=== PATIENT | female | born 1980 | race Caucasian/White ===

== ENCOUNTER 2018-05-08 08:39 | Emergency (ER) | payer BC ==
[2018-05-08 08:50] VITALS: BMI 25.8
--- NOTE | 2018-05-08 09:00 | PDOC ---
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 Symptoms abated, however she is concerned because her blood pressure as taken by the school nurse was 150 systolic. She now has headache/pressure, primarily frontal, and feels weak. She denies focal numbness , change in speech, facial asymmetry, difficulty walking, or any other symptoms. Vital signs on arrival are all within normal limits, including blood pressure 105/67. REVIEW OF SYSTEMS: GENERAL/CONSTITUTIONAL: Generalized weakness. No fever or chills. No weight change. HEAD, EYES, EARS, NOSE AND THROAT: No change in vision. No ear pain or discharge. No sore throat. CARDIOVASCULAR: No chest pain or palpitations. RESPIRATORY: No cough, wheezing, or shortness of breath. GASTROINTESTINAL: No nausea, vomiting, diarrhea or constipation. GENITOURINARY: No dysuria, frequency, or change in urination. MUSCULOSKELETAL: No joint or muscle swelling or pain. No neck or back pain. SKIN: No rash or easy bruising. NEUROLOGIC: See HPI. PSYCHIATRIC: No depression or anxiety. ENDOCRINE: No increased thirst. No abnormal weight change. HEMATOLOGIC/LYMPHATIC: No anemia, easy bleeding, or history of blood clots. ALLERGIC/IMMUNOLOGIC: No hives or skin allergy. No latex allergy. PHYSICAL EXAM: GENERAL: The patient is awake, alert, and fully oriented, in no acute distress. HEAD: Normal with no signs of trauma. ENT: Pupils equal, round and reactive to light, extraocular movements intact, sclera anicteric, conjunctiva clear. Neck supple. LUNGS: Clear to auscultation bilaterally. Normal excursion. No respiratory distress or use of accessory muscles. CV: RRR, S1/S2, no MRG. Cap refill < 2 sec. ABDOMEN: Soft, non-distended, non-tender. EXTREMITIES: Normal range of motion, no edema. NEUROLOGICAL: Normal speech, normal gait. CN II-XII grossly intact. Subjective decreased sensation in right face, arm, and leg. Normal strength. PSYCH: Normal mood, normal affect. SKIN: Warm, dry, normal turgor, no rashes or lesions noted. Past History - Past Medical History Allergies/Adverse Reactions: Allergies Allergy/AdvReac Type Severity Reaction Status Date / Time No Known Allergies Allergy Verified 11/26/14 05:54 Home Medications: Ambulatory Orders NK [No Known Home Medication] 05/08/18 Asthma: No Cancer: No Cardiac Disorders: No COPD: No Diabetes: No HTN: No Seizures: No Thyroid Disease: No - Surgical History Cholecystectomy: No - Immunization History Immunization Up to Date: No - Suicide/Smoking/Psychosocial Hx Smoking History: Never smoked Have you smoked in the past 12 months: No Information on smoking cessation initiated: No Hx Alcohol Use: No Drug/Substance Use Hx: No Substance Use Type: None Hx Substance Use Treatment: No *Physical Exam - Vital Signs Last Vital Signs Temp Pulse Resp BP Pulse Ox 97.9 F 74 16 105/67 99 05/08/18 08:48 05/08/18 08:48 05/08/18 08:48 05/08/18 08:48 05/08/18 08:48 Moderate Sedation - Procedure Monitoring Vital Signs: Procedure Monitoring Vital Signs Temperature 97.9 F 05/08/18 08:48 Pulse Rate 74 05/08/18 08:48 Respiratory Rate 16 05/08/18 08:48 Blood Pressure 105/67 05/08/18 08:48 O2 Sat by Pulse Oximetry (%) 99 05/08/18 08:48 ED Treatment Course - LABORATORY CBC & Chemistry Diagram: 05/08/18 09:00 05/08/18 09:00 Medical Decision Making - Medical Decision Making 05/08/18 11:40 A/P: 37-year-old female with multiple symptoms including headache, dizziness, and blurred vision (resolved). 1. EKG 2. Head CT (subjective right-sided decreased sensation) 3. Labs including CBC, CMP, TSH 4. IV fluids and Tylenol for headache 5. Reassess 05/08/18 12:49 CT reviewed: no evidence of hemorrhage o infarct. Right sphenoid opacification. Labs reviewed and unremarkable. Patient denies dizziness, visual symptoms. Frontal headache improved but still present. *DC/Admit/Observation/Transfer Diagnosis at time of Disposition: Dizziness Headache Qualifiers: Headache type: unspecified Headache chronicity pattern: acute headache Intractability: not intractable Qualified Code(s): R51 - Headache - Discharge Dispostion Disposition: HOME Condition at time of disposition: Improved Decision to Admit order: No - Referrals Referrals: Nima Baumann MD [Primary Care Provider] - Rafael Moses MD [Staff Physician] - Call tomorrow (Neurology) - Patient Instructions Printed Discharge Instructions: DI for Visual Field Disturbances, DI for Headache Additional Instructions: -Your labs and CT scan did not reveal anything concerning -Use Flonase once daily for chronic sinusitis -Follow up with Dr. Moses (neurology - referral enclosed) -Return here for dizziness, visual disturbances, worsening headache, or any other concerning symptoms - Post Discharge Activity Forms/Work/School Notes: Back to Work
[2018-05-08 09:33] LABS: BASO % 0.4 % (0-2.0); EOS % 1.5 % (0-4.5); HEMATOCRIT 39.1 % (32.4-45.2); HEMOGLOBIN 13.5 GM/dL (10.7-15.3); LYMPH % 43.1 % (8-40); MCH 30.9 pg (25.7-33.7); MCHC 34.4 g/dl (32.0-36.0); MEAN CELL VOLUME 89.7 fl (80-96); MEAN PLT VOLUME 9.2 fl (7.5-11.1); MONO % 7.3 % (3.8-10.2); NEUT % 47.7 % (42.8-82.8); PLATELET COUNT 189 K/MM3 (134-434); RBC 4.36 M/mm3 (3.60-5.2); RDW 13.5 % (11.6-15.6); WHITE BLOOD COUNT 5.3 K/mm3 (4.0-10.0)
[2018-05-08 09:34] LABS: INR 1.17 (0.83-1.09); PROTHROMBIN TIME (PATIENT) 13.8 SEC (9.7-13.0)
--- NOTE | 2018-05-08 09:56 | EKG ---
Test Reason : Blood Pressure : / mmHG Vent. Rate : 068 BPM Atrial Rate : 068 BPM P-R Int : 146 ms QRS Dur : 090 ms QT Int : 378 ms P-R-T Axes : 025 054 041 degrees QTc Int : 401 ms NORMAL SINUS RHYTHM NORMAL ECG NO PREVIOUS ECGS AVAILABLE Confirmed by MAGALY HOOVER, RODRÍGUEZ ([id number]) on 05/08/2018 9:56:27 AM Referred By: Confirmed By:RODRÍGUEZ MCKENZIE MD
[2018-05-08] MEDS ORDERED: ACETAMINOPHEN 1000 MG/100 ML VIAL (NON FORMULARY) IVPB ONE (09:57)
[2018-05-08 10:00] LABS: URINE APPEARANCE CLEAR; URINE BILIRUBIN NEGATIVE (<2.0 mg/dL); URINE COLOR LTYELLOW; URINE GLUCOSE (UA) NEGATIVE (NEGATIVE); URINE KETONE NEGATIVE (NEGATIVE); URINE LEUK ESTERASE NEGATIVE (NEGATIVE); URINE NITRITE NEGATIVE (NEGATIVE); URINE PROTEIN NEGATIVE (NEGATIVE); URINE UROBILINOGEN NEGATIVE mg/dL (0.2-1.0)
--- NOTE | 2018-05-08 10:06 | PDOC ---
*Physical Exam - Vital Signs Last Vital Signs Temp Pulse Resp BP Pulse Ox 97.9 F 74 16 105/67 99 05/08/18 08:48 05/08/18 08:48 05/08/18 08:48 05/08/18 08:48 05/08/18 08:48 ED Treatment Course - LABORATORY CBC & Chemistry Diagram: 05/08/18 09:00 05/08/18 09:00 - ADDITIONAL ORDERS Additional order review: Laboratory Results 05/08/18 05/08/18 05/08/18 09:15 09:15 09:00 PT with INR 13.80 H INR 1.17 H Urine Color Ltyellow Urine Appearance Clear Urine pH 7.0 D Ur Specific [place] 1.009 L Urine Protein Negative Urine Glucose (UA) Negative Urine Ketones Negative Urine Blood Negative Urine Nitrite Negative Urine Bilirubin Negative Urine Urobilinogen Negative Ur Leukocyte Esterase Negative Urine HCG, Qual Negative 05/08/18 09:00 RBC 4.36 MCV 89.7 MCHC 34.4 RDW 13.5 MPV 9.2 Neutrophils % 47.7 D Lymphocytes % 43.1 H D Monocytes % 7.3 Eosinophils % 1.5 Basophils % 0.4 Medical Decision Making - Medical Decision Making 05/08/18 10:05 37 yo F presenting to the ER with a complaint of blurry vision and hypertension she was in her usual state of health this morning, did not have her coffee She went to work feeling well Then developed blurry vision (not diplopia) BP was checked by the school nurse, noted to be elevated This improved prior to arrival in the ER In the ER, she developed a frontal headache No neck stiffness No vomiting or nausea upon my arrival to her room, pt using her cell phone She was able to turn herself over with no assistance from me RRR CTA Answers all questions appropriately Moves all extremities Labs pending Will give Tylenol/Reglan/IVF CT head Re Assess Pt seen by Midlevel Provider under my direct supervision Pt interviewed and examined Ancillary studies reviewed I agree with plan as outlined by Midlevel Provider 05/08/18 10:38 05/08/18 12:47 CT demonstrates sinusitis D/c on Augmentin F/u PMD and Neuro *DC/Admit/Observation/Transfer Diagnosis at time of Disposition: Headache, Dizziness - Discharge Dispostion Disposition: HOME Condition at time of disposition: Improved - Referrals Referrals: Nima Baumann MD [Primary Care Provider] - Rafael Moses MD [Staff Physician] - Call tomorrow (Neurology) - Patient Instructions Printed Discharge Instructions: DI for Headache, DI for Visual Field Disturbances Additional Instructions: -Your labs and CT scan did not reveal anything concerning -Use Flonase once daily for chronic sinusitis -Follow up with Dr. Moses (neurology - referral enclosed) -Return here for dizziness, visual disturbances, worsening headache, or any other concerning symptoms - Post Discharge Activity Forms/Work/School Notes: Back to Work
[2018-05-08 10:20] LABS: ALK PHOS 60 U/L (45-117); ANION GAP 7 MMOL/L (8-16); BILIRUBIN,TOTAL 0.5 mg/dL (0.2-1); BLOOD UREA NITROGEN 14 mg/dL (7-18); CALCIUM 8.5 mg/dL (8.5-10.1); CHLORIDE 107 mmol/L (98-107); CO2 28 mmol/L (21-32); CREATININE 0.9 mg/dL (0.55-1.3); GLUCOSE,RANDOM 65 mg/dL (74-106); SGOT/AST 7 U/L (15-37); SGPT/ALT 14 U/L (13-61); SODIUM 142 mmol/L (136-145); TOT PROT 6.7 g/dl (6.4-8.2)
[2018-05-08] MEDS ORDERED: SODIUM CHLORIDE 1,000 ML IV STA (10:22)
[2018-05-08] MEDS ORDERED: ACETAMINOPHEN INJECTION 100 ML IVPB ONE (10:25)
[2018-05-08] MEDS ORDERED: KETOROLAC TROMETHAMINE 30 MG/1 ML VIAL IVPUSH ONE (12:49)
[2018-05-08] MEDS ORDERED: KETOROLAC TROMETHAMINE 30 MG/1 ML VIAL ONE (13:35)
[2018-05-08 14:11] VITALS: BP 126/61; PULSE 65; TEMP 98
== END 2018-05-08 14:05 | disposition home or self-care (01) ==
LOC: JER 08:39
PROC: 3E033NZ Introduction of Analgesics, Hypnotics, Sedatives into Peripheral Vein, Percutaneous Approach (ICD-10-PCS; principal; 2018-05-08)
PROC: 3E0333Z Introduction of Anti-inflammatory into Peripheral Vein, Percutaneous Approach (ICD-10-PCS; 2018-05-08)
PROC: 3E0337Z Introduction of Electrolytic and Water Balance Substance into Peripheral Vein, Percutaneous Approach (ICD-10-PCS; 2018-05-08)
DX: R42 Dizziness and giddiness (principal); R51 Headache
CPT/HCPCS: 36415; 70450-TC; 80053; 81003; 84443; 84703; 85025; 85610; 87086; 93005; 93010; 99283-25; J0131; J7030

== ENCOUNTER 2021-07-09 18:21 | Emergency (ER) | payer BC ==
[2021-07-09 18:32] VITALS: BP 112/67; PULSE 72; TEMP 98; BMI 25.1
== END 2021-07-09 19:51 | disposition home or self-care (01) ==
LOC: FER 18:21
DX: S69.91XA Unspecified injury of right wrist, hand and finger(s), initial encounter (principal); W22.8XXA Striking against or struck by other objects, initial encounter
CPT/HCPCS: 73130-TC-RT-FY; 73140-TC-RT-FY; 99283-25

== ENCOUNTER 2022-12-08 08:16 | Emergency (ER) | payer BC ==
[2022-12-08 08:22] VITALS: BP 107/75; PULSE 68; RESP 16; TEMP 98; BMI 29.2
== END 2022-12-08 09:00 | disposition home or self-care (01) ==
LOC: FER 08:16
DX: M25.522 Pain in left elbow (principal); R20.0 Anesthesia of skin; R20.2 Paresthesia of skin; M70.22 Olecranon bursitis, left elbow; R22.32 Localized swelling, mass and lump, left upper limb
CPT/HCPCS: 99282-25

== ENCOUNTER 2023-10-26 16:22 | Emergency (ER) | payer BC ==
[2023-10-26 16:38] VITALS: BP 115/73; PULSE 71; RESP 17; TEMP 97.8; BMI 29.2
[2023-10-26] MEDS ORDERED: KETOROLAC TROMETHAMINE 30 MG/1 ML VIAL ONE (17:28)
[2023-10-26] MEDS: KETOROLAC TROMETHAMINE 30 MG/1 ML VIAL IM ONE (17:41)
== END 2023-10-26 18:16 | disposition home or self-care (01) ==
LOC: JER 16:22
PROC: 3E0233Z Introduction of Anti-inflammatory into Muscle, Percutaneous Approach (ICD-10-PCS; principal; 2023-10-26)
DX: R51.9 Headache, unspecified (principal); R20.2 Paresthesia of skin
CPT/HCPCS: 99284-25

== ENCOUNTER 2023-10-28 09:26 | Emergency (ER) | payer BC ==
[2023-10-28 09:38] VITALS: BP 129/79; PULSE 74; RESP 16; TEMP 98; BMI 29.2
[2023-10-28] MEDS ORDERED: KETOROLAC TROMETHAMINE 30 MG/1 ML VIAL ONE (09:45)
[2023-10-28] MEDS ORDERED: ONDANSETRON 4 MG/2 ML VIAL ONE (09:46)
[2023-10-28] MEDS ORDERED: FAMOTIDINE 20 MG/50 ML IVPB 20 MG/50 ML MG IVPB ONE (09:46)
[2023-10-28] MEDS: SODIUM CHLORIDE 1,000 ML IV STA (10:00)
[2023-10-28] MEDS: FAMOTIDINE 20 MG/50 ML IVPB 20 MG/50 ML MG IVPB ONE (10:00)
[2023-10-28] MEDS: KETOROLAC TROMETHAMINE 30 MG/1 ML VIAL IVPUSH ONE (10:05)
[2023-10-28] MEDS: ONDANSETRON *ODT* 4 MG TABLET SL ONE ×2 (10:16→13:34)
[2023-10-28] MEDS ORDERED: ACETAMINOPHEN INJECTION 100 ML IVPB ONE (10:37)
[2023-10-28 10:38] LABS: HEMATOCRIT 39.4 % (32.4-45.2); HEMOGLOBIN 12.8 G/dL (10.7-15.3); MCH 29.9 pg (25.7-33.7); MCHC 32.5 g/dl (32.0-36.0); MEAN CELL VOLUME 91.8 fl (80-96); MEAN PLT VOLUME 8.6 fl (7.5-11.1); PLATELET COUNT 181.1 10^3/uL (134-434); RBC 4.29 10^6/uL (3.60-5.2); RDW 14.5 % (11.6-15.6); WHITE BLOOD COUNT 6.5 10^3/uL (4.0-10.8)
[2023-10-28] MEDS: ACETAMINOPHEN 1000 MG/100 ML BAG IVPB ONE (10:38)
[2023-10-28 10:48] LABS: ALBUMIN 4.3 g/dl (3.4-5.0); ALK PHOS 52 U/L (45-117); ANION GAP 5 mmol/L (4-13); BILIRUBIN,TOTAL 0.4 mg/dl (0.2-1); CALCIUM 9.2 mg/dl (8.5-10.1); CHLORIDE 106 mmol/L (98-107); CO2 27 mmol/L (21-32); CREATININE 0.6 mg/dl (0.6-1.3); GLUCOSE,RANDOM 102 mg/dl (74-106); POTASSIUM 4.2 mmol/L (3.5-5.1); SGOT/AST 9 U/L (15-37); SGPT/ALT 7 U/L (7-52); SODIUM 138 mmol/L (136-145); TOT PROT 6.3 g/dl (6.4-8.2)
[2023-10-28] MEDS: predniSONE 10 MG TABLET (UD) PO ONE (11:20)
[2023-10-28] MEDS ORDERED: predniSONE 20 MG TABLET (UD) ONE (11:21)
[2023-10-28] MEDS ORDERED: predniSONE 10 MG TABLET (UD) ONE (11:22)
[2023-10-28] MEDS ORDERED: morphine SULFATE 4 MG/ML VIAL ONE (11:28)
[2023-10-28] MEDS: morphine CARPU-JECT 4 MG/1 ML DISP.SYRIN IVPUSH ONE (11:32)
[2023-10-28 11:56] LABS: PLATELET ESTIMATE ADEQUATE
[2023-10-28] MEDS ORDERED: ONDANSETRON *ODT* 4 MG TABLET ONE (13:33)
== END 2023-10-28 14:19 | disposition home or self-care (01) ==
LOC: FER 09:26
PROC: 3E033GC Introduction of Other Therapeutic Substance into Peripheral Vein, Percutaneous Approach (ICD-10-PCS; principal; 2023-10-28)
PROC: 3E033NZ Introduction of Analgesics, Hypnotics, Sedatives into Peripheral Vein, Percutaneous Approach (ICD-10-PCS; 2023-10-28)
PROC: 3E0333Z Introduction of Anti-inflammatory into Peripheral Vein, Percutaneous Approach (ICD-10-PCS; 2023-10-28)
PROC: 3E033NZ Introduction of Analgesics, Hypnotics, Sedatives into Peripheral Vein, Percutaneous Approach (ICD-10-PCS; 2023-10-28)
DX: R51.9 Headache, unspecified (principal); B02.9 Zoster without complications
CPT/HCPCS: 36415; 70450-TC; 80053; 81025; 85027; 85651; 86140; 99284-25; J0131; Q0162